=== PATIENT | male | born 1930 | race Caucasian/White ===

== ENCOUNTER 2017-04-25 05:50 | Day surgery (SDC) | payer MEDICARE, BC ==
[2017-04-25] MEDS ORDERED: Lactated Ringers 1,000 ML IV SCH (07:00)
[2017-04-25] MEDS ORDERED: Propofol 200 MG/20 ML SDV ONE (07:22)
[2017-04-25] MEDS ORDERED: fentaNYL 100 MCG/2 ML SDV ONE (07:22)
[2017-04-25 09:35] VITALS: BP 127/85
--- NOTE | 2017-04-28 07:47 | OR ---
DATE OF PROCEDURE: 04/25/2017 PREOPERATIVE DIAGNOSES: Weight loss, anorexia, and left lower quadrant abdominal pain. POSTOPERATIVE DIAGNOSES: Weight loss, anorexia, and left lower quadrant abdominal pain, etiology unknown, unremarkable colonoscopy. PROCEDURE: Colonoscopy to the cecum. SURGEON: Yohan Kuhn M.D. ANESTHESIA: IV anesthesia with monitored anesthesia care. INDICATION: This 87-year-old white male is referred for a colonoscopy because of 40-pound weight loss, anorexia, and left lower quadrant abdominal pain. He says it is really a mild discomfort. He says his last colonoscopic exam was done in 2002. I counseled him for the procedure, including risks and alternatives, and he gave his informed consent to proceed. DESCRIPTION OF PROCEDURE: The patient was placed in the left lateral decubitus position. IV anesthesia was administered by the Anesthesia Service. Time-out was held. A rectal exam was performed, which was unremarkable. The flexible video Olympus colonoscope was introduced through his anus, up to his rectum and out of his colon, all the way to the cecum. Once the cecum was reached, the scope was slowly withdrawn, examining the mucosa throughout. No mucosal abnormalities were noted. The scope was retroflexed in the rectum with the distal rectum appearing unremarkable. The scope was straightened and removed. He tolerated the procedure well. Yohan Kuhn MD /[id number]
== END 2017-04-25 09:33 | disposition home or self-care (01) ==
LOC: JP.SDS 05:50
PROVIDERS: ATTEND Surgery
DX: R10.32 Left lower quadrant pain (principal); R63.4 Abnormal weight loss; R63.0 Anorexia; J44.9 Chronic obstructive pulmonary disease, unspecified; E78.5 Hyperlipidemia, unspecified; I48.92 Unspecified atrial flutter; Z88.1 Allergy status to other antibiotic agents; Z88.8 Allergy status to other drugs, medicaments and biological substances
CPT/HCPCS: 45378; J2704; J3010; J7120

== ENCOUNTER 2017-05-23 06:52 | Day surgery (SDC) | payer MEDICARE, BC ==
[2017-05-23] MEDS ORDERED: fentaNYL 100 MCG/2 ML SDV ONE (07:18)
[2017-05-23] MEDS ORDERED: Propofol 200 MG/20 ML SDV ONE (07:18)
[2017-05-23] MEDS ORDERED: Lactated Ringers 1,000 ML IV SCH (07:30)
[2017-05-23 10:51] VITALS: BP 132/76
--- NOTE | 2017-05-23 11:17 | OR ---
DATE OF PROCEDURE: 05/23/2017 PREOPERATIVE DIAGNOSES: 1. Weight loss. 2. Early satiety. POSTOPERATIVE DIAGNOSES: 1. Gastroesophageal reflux disease. 2. Duodenitis. PROCEDURES: 1. Esophagogastroduodenoscopy with biopsy of gastroesophageal junction. 2. Biopsy of antrum for CLOtest and for pathology to look for Helicobacter pylori. SURGEON: Yohan Kuhn MD. ANESTHESIA: IV anesthesia with monitored anesthesia care. INDICATION: This 87-year-old white male is referred for upper endoscopy. He has a recent colonoscopy. Indication for the upper endoscopy is weight loss and early satiety. I counseled him for the procedure, including risks and alternatives, and he gave his informed consent to proceed. DESCRIPTION OF PROCEDURE: The patient was placed in the left lateral decubitus position. IV anesthesia was administered by the Anesthesia Service. Time-out was held. The flexible video Olympus upper endoscope was passed through his mouth, down his esophagus, and into his stomach. The scope was easily passed through the pylorus, into the duodenum, reaching its third portion. The scope was then slowly withdrawn examining the mucosa throughout. The distal duodenum appeared unremarkable. The scope was brought back into the duodenal bulb, which showed intense erythema consistent with duodenitis. The scope was brought back through the pylorus into the antrum. We obtained antral biopsies for CLOtest, sent for pathology to look for Helicobacter pylori. The scope was retroflexed, and the proximal stomach appeared unremarkable. The scope was straightened and brought up through the GE junction. The Z-line was not straight, consistent with gastroesophageal reflux disease. We obtained biopsies of the gastroesophageal junction totalling at least six. The scope was then brought proximally up through the remainder of the esophagus, which otherwise appeared unremarkable, and it was removed. He tolerated the procedure well. Yohan Kuhn MD /[id number]
== END 2017-05-23 11:05 | disposition home or self-care (01) ==
LOC: JP.SDS 06:52
PROVIDERS: ATTEND Surgery
DX: K29.50 Unspecified chronic gastritis without bleeding (principal); K20.9 Esophagitis, unspecified; I48.91 Unspecified atrial fibrillation; Z88.1 Allergy status to other antibiotic agents; Z88.8 Allergy status to other drugs, medicaments and biological substances
CPT/HCPCS: 43239; 87081; J2704; J3010; J7120; 88305; 88341; 88342

== ENCOUNTER 2018-10-12 11:10 | Emergency (ER) | payer MEDICARE, BC ==
[2018-10-12 11:50] VITALS: BP 148/80
--- NOTE | 2018-10-12 12:31 | EDM.PDOC ---
ED HPI GENERAL MEDICAL PROBLEM - General Chief Complaint: Respiratory Problem Stated Complaint: COUGHING FOR SEVERAL DAYS Time Seen by Provider: 10/12/18 12:15 Source of Information: Reports: Patient, Family History Limitations: Reports: No Limitations - History of Present Illness INITIAL COMMENTS - FREE TEXT/NARRATIVE: 88-year-old male with a cough for 10 days. No significant production, no significant fevers or chills. Intermittent shortness of breath. It started with a sore throat and a head cold, then moved into his lungs and it's not going away. Onset: Gradual Duration: Day(s): (10-14 days) Location: Reports: Chest Associated Symptoms: Reports: Other (Has been worked up for weight loss, also recently lost his vision). Denies: Fever/Chills, Headaches - Related Data Allergies Allergy/AdvReac Type Severity Reaction Status Date / Time dexamethasone Allergy Itching Verified 09/05/17 07:55 dorzolamide Allergy Rash Verified 09/05/17 07:55 erythromycin base Allergy Itching Verified 09/05/17 07:55 tobramycin Allergy Itching Verified 09/05/17 07:55 Home Meds: Home Meds Brimonidine [Alphagan 0.2% Ophth Soln] 1 drop EYERT BID 09/28/15 [History] Gabapentin [Neurontin] 600 mg PO DAILY 09/28/15 [History] Ipratropium [Atrovent 0.06% Nasal [place]] 2 spray PAULIE DAILY 09/28/15 [History] Levothyroxine Sodium [Synthroid] 150 mcg PO DAILY 09/28/15 [History] Mv-Mn/FA/Vit K/Lycop/Lut/Zeaxa [Ocuvite Eye + Multi Tablet] 1 each PO DAILY [History] Primidone [Mysoline] 150 mg PO BID 09/28/15 [History] Timolol Maleate [Timoptic 0.5% Opth Soln] 1 drop EYERT BID 09/28/15 [History] Triamcinolone Acetonide [Kenalog 0.1% Crm] 1 applic TOP BID PRN 09/28/15 [ History] Albuterol [IMW: Albuterol HFA] 1 - 2 puff IH Q4H PRN 04/23/17 [History] Aspirin [Children's Aspirin] 81 mg PO DAILY 04/23/17 [History] Cyanocobalamin (Vitamin B-12) [Vitamin B-12] 100 mcg PO DAILY 04/23/17 [History] Diltiazem HCl [Cardizem] 30 mg PO BID 04/23/17 [History] Omeprazole 40 mg PO BEDTIME 09/03/17 [History] Past Medical History HEENT History: Reports: Cataract, Glaucoma, Hard of Hearing, Impaired Vision, Other (See Below) Other HEENT History: stents in eyes, swollen retina, possible macular degeneration, injections in eyes Cardiovascular History: Reports: Afib, Arrhythmia, Other (See Below) Other Cardiovascular History: a flutter, cardioverted Respiratory History: Reports: Other (See Below) Other Respiratory History: "some breathing problems" 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 Gastrointestinal History: Reports: None Musculoskeletal History: Reports: Arthritis, Back Pain, Chronic Neurological History: Reports: Vertigo Psychiatric History: Reports: Depression Endocrine/Metabolic History: Reports: Hypothyroidism Dermatologic History: Reports: Other (See Below) Other Dermatologic History: winter has problems with dry skin - Infectious Disease History Infectious Disease History: Reports: Chicken Pox, Measles, Pertussis (Whooping Cough), Shingles - Past Surgical History Head Surgeries/Procedures: Reports: None HEENT Surgical History: Reports: Adenoidectomy, Cataract Surgery, Eye Surgery, Tonsillectomy Cardiovascular Surgical History: Reports: None Respiratory Surgical History: Reports: None GI Surgical History: Reports: Cholecystectomy, Colonoscopy Endocrine Surgical History: Reports: None Neurological Surgical History: Reports: Other (See Below) Other Neurological Surgeries/Procedures: back surgery Musculoskeletal Surgical History: Reports: Other (See Below) Other Musculoskeletal Surgeries/Procedures:: back surgery in 1999 Dermatological Surgical History: Reports: None Social & Family History - Family History Family Medical History: Noncontributory - Tobacco Use Smoking Status *Q: Former Smoker Used Tobacco, but Quit: No - Caffeine Use Caffeine Use: Reports: Coffee Other Caffeine Use: decaff coffee - Alcohol Use Days Per Week of Alcohol Use: 4 Number of Drinks Per Day: 1 Total Drinks Per Week: 4 - Recreational Drug Use Recreational Drug Use: No ED ROS GENERAL - Review of Systems Review Of Systems: See Below Constitutional: Reports: Malaise. Denies: Fever, Chills HEENT: Reports: Throat Pain Respiratory: Reports: Cough Cardiovascular: Denies: Chest Pain GI/Abdominal: Denies: Nausea, Vomiting Neurological: Denies: Headache Psychiatric: Reports: No Symptoms ED EXAM, GENERAL - Physical Exam Exam: See Below Exam Limited By: No Limitations General Appearance: Alert, No Apparent Distress Head: Atraumatic Respiratory/Chest: No Respiratory Distress, Lungs Clear, Rhonchi (A few scattered perihilar rhonchi) Cardiovascular: Regular Rate, Rhythm Extremities: Normal Inspection. No: Pedal Edema Neurological: Alert, Oriented Psychiatric: Normal Affect, Normal Mood Skin Exam: Warm, Dry Course - Vital Signs Last Recorded V/S: Last Vital Signs Temp 97.5 F 10/12/18 11:53 Pulse 83 10/12/18 11:53 Resp 16 10/12/18 11:53 BP 148/80 H 10/12/18 11:53 Pulse Ox 95 10/12/18 11:53 - Re-Assessments/Exams Free Text/Narrative Re-Assessment/Exam: 10/12/18 12:29 Patient will be covered with Zithromax, encouraged to recheck in 3-5 days if not improving. Return anytime if worsening. Departure - Departure Time of Disposition: 12:46 Disposition: Home, Self-Care 01 Clinical Impression: Bronchitis - Discharge Information Instructions: Acute Bronchitis, Adult, [id number] Referrals: Lam Raymundo MD [Primary Care Provider] - Forms: ED Department Discharge Care Plan Goals: Take medication as prescribed, continue your regular medications. Activity as tolerated, and consider rechecking in 4-5 days if not improving. Return anytime if worsening or concerns.
== END 2018-10-12 12:47 | disposition home or self-care (01) ==
LOC: JP.ED 11:10
DX: J40 Bronchitis, not specified as acute or chronic (principal); E03.9 Hypothyroidism, unspecified; Z88.1 Allergy status to other antibiotic agents; Z88.8 Allergy status to other drugs, medicaments and biological substances; Z79.899 Other long term (current) drug therapy; Z79.82 Long term (current) use of aspirin; Z79.51 Long term (current) use of inhaled steroids; Z98.890 Other specified postprocedural states; Z90.49 Acquired absence of other specified parts of digestive tract; Z87.891 Personal history of nicotine dependence
CPT/HCPCS: 99282

== ENCOUNTER 2019-02-11 14:16 | Emergency (ER) | payer MEDICARE, BC ==
--- NOTE | 2019-02-11 15:20 | EDM.PDOC ---
ED HPI GENERAL MEDICAL PROBLEM - General Chief Complaint: Cardiovascular Problem Stated Complaint: RAPID HEARTBEAT Time Seen by Provider: 02/11/19 14:59 Source of Information: Reports: Patient, Family, RN Notes Reviewed History Limitations: Reports: No Limitations - History of Present Illness INITIAL COMMENTS - FREE TEXT/NARRATIVE: 89-year-old gentleman presents to the emergency department with a complaint of palpitations, he has a known history of paroxysmal atrial fibrillation he is anticoagulated with aspirin alone has underwent cardioversion in the past. He states he woke this morning with the sensation of having palpitations he feels like his heart rate is irregular at this time. No shortness of breath no chest pain no nausea or vomiting - Related Data Allergies Allergy/AdvReac Type Severity Reaction Status Date / Time dexamethasone Allergy Itching Verified 02/11/19 14:36 dorzolamide Allergy Rash Verified 02/11/19 14:36 erythromycin base Allergy Itching Verified 02/11/19 14:36 tobramycin Allergy Itching Verified 02/11/19 14:36 Home Meds: Home Meds Brimonidine [Alphagan 0.2% Ophth Soln] 1 drop EYERT BID 09/28/15 [History] Gabapentin [Neurontin] 600 mg PO DAILY 09/28/15 [History] Ipratropium [Atrovent 0.06% Nasal [place]] 2 spray PAULIE DAILY 09/28/15 [History] Levothyroxine Sodium [Synthroid] 150 mcg PO DAILY 09/28/15 [History] Mv-Mn/FA/Vit K/Lycop/Lut/Zeaxa [Ocuvite Eye + Multi Tablet] 1 each PO DAILY [History] Primidone [Mysoline] 150 mg PO BID 09/28/15 [History] Timolol Maleate [Timoptic 0.5% Opth Soln] 1 drop EYERT BID 09/28/15 [History] Triamcinolone Acetonide [Kenalog 0.1% Crm] 1 applic TOP BID PRN 09/28/15 [ History] Albuterol [IMW: Albuterol HFA] 1 - 2 puff IH Q4H PRN 04/23/17 [History] Aspirin [Children's Aspirin] 81 mg PO DAILY 04/23/17 [History] Cyanocobalamin (Vitamin B-12) [Vitamin B-12] 100 mcg PO DAILY 04/23/17 [History] Diltiazem HCl [Cardizem] 30 mg PO BID 04/23/17 [History] Omeprazole 40 mg PO BEDTIME 09/03/17 [History] Past Medical History HEENT History: Reports: Cataract, Glaucoma, Hard of Hearing, Impaired Vision, Other (See Below) Other HEENT History: stents in eyes, swollen retina, possible macular degeneration, injections in eyes, legally blind. 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[employer] Musculoskeletal History: Reports: Arthritis, Back Pain, Chronic Neurological History: Reports: Vertigo Psychiatric History: Reports: Depression Endocrine/Metabolic History: Reports: Hypothyroidism Dermatologic History: Reports: Other (See Below) Other Dermatologic History: winter has problems with dry skin - Infectious Disease History Infectious Disease History: Reports: Chicken Pox, Measles, Pertussis (Whooping Cough), Shingles - Past Surgical History Head Surgeries/Procedures: Reports: None HEENT Surgical History: Reports: Adenoidectomy, Cataract Surgery, Eye Surgery, Tonsillectomy GI Surgical History: Reports: Cholecystectomy, Colonoscopy Neurological Surgical History: Reports: Other (See Below) Other Neurological Surgeries/Procedures: back surgery d/t ruptured disc. Musculoskeletal Surgical History: Reports: Other (See Below) Other Musculoskeletal Surgeries/Procedures:: back surgery in 1999 Social & Family History - Family History Family Medical History: Noncontributory - Tobacco Use Smoking Status *Q: Never Smoker - Caffeine Use Caffeine Use: Reports: Coffee Other Caffeine Use: decaff coffee - Alcohol Use Days Per Week of Alcohol Use: 4 Number of Drinks Per Day: 1 Total Drinks Per Week: 4 - Recreational Drug Use Recreational Drug Use: No ED ROS GENERAL - Review of Systems Review Of Systems: See Below Constitutional: Reports: No Symptoms HEENT: Reports: No Symptoms Respiratory: Reports: No Symptoms Cardiovascular: Reports: Palpitations GI/Abdominal: Reports: No Symptoms ED EXAM, GENERAL - Physical Exam Exam: See Below Exam Limited By: No Limitations General Appearance: Alert, WD/WN, No Apparent Distress Respiratory/Chest: No Respiratory Distress, Lungs Clear, Normal Breath Sounds, No Accessory Muscle Use, Chest Non-Tender Cardiovascular: Regular Rate, Rhythm, No Murmur Course - Vital Signs Last Recorded V/S: Last Vital Signs Temp 98.0 F 02/11/19 14:35 Pulse 54 L 02/11/19 16:25 Resp 16 02/11/19 16:25 BP 130/68 02/11/19 16:25 Pulse Ox 98 02/11/19 16:25 - Orders/Labs/Meds Orders: Active Orders 24 hr Category Date Time Status Cardiac Monitoring [RC] .As Directed Care 02/11/19 15:10 Active EKG Documentation Completion [RC] ASDIRECTED Care 02/11/19 15:16 Active EKG 12 Lead [EK] Stat Ther 02/11/19 15:15 Ordered Labs: Laboratory Tests 02/11/19 02/11/19 02/11/19 Range/Units 15:19 15:19 15:19 WBC 4.7 (4.5-11.0) K/uL RBC 4.24 L (4.30-5.90) M/uL Hgb 13.0 (12.0-15.0) g/dL Hct 40.2 (40.0-54.0) % MCV 95 (80-98) fL MCH 31 (27-31) pg MCHC 32 (32-36) % Plt Count 217 (150-400) K/uL Neut % (Auto) 58 (36-66) % Lymph % (Auto) 27 (24-44) % Irwin % (Auto) 9 H (2-6) % Eos % (Auto) 5 H (2-4) % Baso % (Auto) 1 (0-1) % Sodium 137 L (140-148) mmol/L Potassium 4.0 (3.6-5.2) mmol/L Chloride 103 (100-108) mmol/L Carbon Dioxide 30 (21-32) mmol/L Anion Gap 8.0 (5.0-14.0) mmol/L BUN 16 (7-18) mg/dL Creatinine 1.1 (0.8-1.3) mg/dL Est Cr Clr Drug Dosing 49.83 mL/min Estimated GFR (MDRD) > 60 (>60) Glucose 86 (74-106) mg/dL Calcium 8.4 L (8.5-10.1) mg/dL Magnesium (1.8-2.4) mg/dL Total Bilirubin 0.3 (0.2-1.0) mg/dL AST 17 (15-37) U/L ALT 20 (12-78) U/L Alkaline Phosphatase 61 (46-116) U/L Troponin I < 0.017 (0.000-0.056) ng/mL Total Protein 6.9 (6.4-8.2) g/dL Albumin 2.9 L (3.4-5.0) g/dL Globulin 4.0 H (2.3-3.5) g/dL Albumin/Globulin Ratio 0.7 L (1.2-2.2) TSH, Ultra Sensitive (0.358-3.740) uIU/mL 02/11/19 Range/Units 15:19 WBC (4.5-11.0) K/uL RBC (4.30-5.90) M/uL Hgb (12.0-15.0) g/dL Hct (40.0-54.0) % MCV (80-98) fL MCH (27-31) pg MCHC (32-36) % Plt Count (150-400) K/uL Neut % (Auto) (36-66) % Lymph % (Auto) (24-44) % Irwin % (Auto) (2-6) % Eos % (Auto) (2-4) % Baso % (Auto) (0-1) % Sodium (140-148) mmol/L Potassium (3.6-5.2) mmol/L Chloride (100-108) mmol/L Carbon Dioxide (21-32) mmol/L Anion Gap (5.0-14.0) mmol/L BUN (7-18) mg/dL Creatinine (0.8-1.3) mg/dL Est Cr Clr Drug Dosing mL/min Estimated GFR (MDRD) (>60) Glucose (74-106) mg/dL Calcium (8.5-10.1) mg/dL Magnesium 1.7 L (1.8-2.4) mg/dL Total Bilirubin (0.2-1.0) mg/dL AST (15-37) U/L ALT (12-78) U/L Alkaline Phosphatase (46-116) U/L Troponin I (0.000-0.056) ng/mL Total Protein (6.4-8.2) g/dL Albumin (3.4-5.0) g/dL Globulin (2.3-3.5) g/dL Albumin/Globulin Ratio (1.2-2.2) TSH, Ultra Sensitive 2.199 (0.358-3.740) uIU/mL Departure - Departure Time of Disposition: 17:24 Disposition: Home, Self-Care 01 Condition: Fair Clinical Impression: Palpitations Referrals: Lam Raymundo MD [Primary Care Provider] - Forms: ED Department Discharge Additional Instructions: Continue with your regular medications, please register at the hospital tomorrow for an appointment with respiratory therapy who will fit you with a 48- hour Holter monitor, after you turn this and the results will go to Dr. Jo Sepsis Event Note - Evaluation Sepsis Screening Result: No Definite Risk - Focused Exam Vital Signs: Vital Signs Temp Pulse Resp BP Pulse Ox 02/11/19 16:25 54 L 16 130/68 98 02/11/19 15:55 58 L 122/65 02/11/19 15:24 61 121/65 02/11/19 14:55 71 16 111/69 98 02/11/19 14:35 98.0 F 68 10 L 134/68 98 02/11/19 14:30 98.0 F 68 10 L 134/68 98 Date Exam was Performed: 02/11/19 Time Exam was Performed: 17:23 - My Orders Last 24 Hours: My Active Orders 02/11/19 15:10 Cardiac Monitoring [RC] .As Directed 02/11/19 15:15 EKG 12 Lead [EK] Stat 02/11/19 15:16 EKG Documentation Completion [RC] ASDIRECTED - Assessment/Plan Last 24 Hours: My Active Orders 02/11/19 15:10 Cardiac Monitoring [RC] .As Directed 02/11/19 15:15 EKG 12 Lead [EK] Stat 02/11/19 15:16 EKG Documentation Completion [RC] ASDIRECTED Plan: Assessment Acuity = acute Site and laterality = palpitations Etiology = unclear etiology Manifestations = none Location of injury = Home Lab values = CBC, CMP unremarkable troponin was negative EKG demonstrates sinus rhythm with a first-degree block and PVCs appreciated Plan I did review lab work EKG results with him elected to proceed with a 48-hour Holter monitor he will come in tomorrow and get fitted for that and then follow- up with his primary care for further evaluation suspicious for paroxysmal atrial fibrillation This note was dictated using [employer] voice recognition software please call with any questions on syntax or grammar.
[2019-02-11 16:38] VITALS: BP 130/68; PULSE 54
== END 2019-02-11 17:49 | disposition home or self-care (01) ==
LOC: JP.ED 14:16
DX: R00.2 Palpitations (principal); I48.91 Unspecified atrial fibrillation; F32.9 Major depressive disorder, single episode, unspecified; E03.9 Hypothyroidism, unspecified; Z79.82 Long term (current) use of aspirin; Z79.899 Other long term (current) drug therapy; Z88.1 Allergy status to other antibiotic agents; Z88.8 Allergy status to other drugs, medicaments and biological substances
CPT/HCPCS: 36415; 80053; 83735; 84443; 84484; 85025; 93005; 93010; 99283; 99285-25

== ENCOUNTER 2020-05-21 16:01 | Emergency (ER) | payer MEDICARE, BC ==
[2020-05-21 16:40] VITALS: BP 105/44; PULSE 75
[2020-05-21] MEDS ORDERED: Sodium Chloride 0.9% 10 ML Syringe FLUSH PRN (16:53)
[2020-05-21] MEDS ORDERED: Ondansetron 4 MG/2 ML SDV IVPUSH ONE (16:54)
--- NOTE | 2020-05-21 16:56 | EDM.PDOC ---
ED HPI GENERAL MEDICAL PROBLEM - General Chief Complaint: Gastrointestinal Problem Stated Complaint: NOT EATING, WEAKNESS Time Seen by Provider: 05/21/20 16:49 Source of Information: Reports: Patient, Family, RN Notes Reviewed History Limitations: Reports: No Limitations - History of Present Illness INITIAL COMMENTS - FREE TEXT/NARRATIVE: 89-year-old gentleman presents emergency department day complaint of nausea vomiting upset stomach states his been ill pretty much since this morning feels very weak and rundown he did receive his Covid vaccine 2 shots last was about a month ago he is not having fevers no shortness of breath or chest pain - Related Data Allergies Allergy/AdvReac Type Severity Reaction Status Date / Time dexamethasone Allergy Itching Verified 05/21/20 16:22 dorzolamide Allergy Rash Verified 05/21/20 16:22 erythromycin base Allergy Itching Verified 05/21/20 16:22 tobramycin Allergy Itching Verified 05/21/20 16:22 Home Meds: Home Meds Brimonidine [Alphagan 0.2% Ophth Soln] 1 drop EYERT BID 09/28/15 [History] Gabapentin [Neurontin] 600 mg PO DAILY 09/28/15 [History] Ipratropium [Atrovent 0.06% Nasal [place]] 2 spray PAULIE DAILY 09/28/15 [History] Levothyroxine Sodium [Synthroid] 150 mcg PO DAILY 09/28/15 [History] Mv-Mn/FA/Vit K/Lycop/Lut/Zeaxa [Ocuvite Eye + Multi Tablet] 1 each PO DAILY 09/28/15 [History] Primidone [Mysoline] 150 mg PO BID 09/28/15 [History] Triamcinolone Acetonide [Kenalog 0.1% Crm] 1 applic TOP BID PRN 09/28/15 [History] timoloL maleate [Timoptic 0.5% Opth Soln] 1 drop EYERT BID 09/28/15 [History] Albuterol [IMW: Albuterol HFA] 1 - 2 puff IH Q4H PRN 04/23/17 [History] Aspirin [Children's Aspirin] 81 mg PO DAILY 04/23/17 [History] Cyanocobalamin (Vitamin B-12) [Vitamin B-12] 100 mcg PO DAILY 04/23/17 [History] dilTIAZem HCL [Cardizem] 30 mg PO BID 04/23/17 [History] Omeprazole 40 mg PO BEDTIME 09/03/17 [History] ondansetron HCL [Ondansetron HCl] 1 tab PO Q8HR PRN 05/21/20 [History] Past Medical History HEENT History: Reports: Cataract, Glaucoma, Hard of Hearing, Impaired Vision, Other (See Below) Other HEENT History: stents in eyes, swollen retina, possible macular degeneration, injections in eyes, legally blind. 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 Musculoskeletal History: Reports: Arthritis, Back Pain, Chronic Neurological History: Reports: Vertigo Psychiatric History: Reports: Depression Endocrine/Metabolic History: Reports: Hypothyroidism Dermatologic History: Reports: Other (See Below) Other Dermatologic History: winter has problems with dry skin - Infectious Disease History Infectious Disease History: Reports: Chicken Pox, Measles, Pertussis (Whooping Cough), Shingles - Past Surgical History Head Surgeries/Procedures: Reports: None HEENT Surgical History: Reports: Adenoidectomy, Cataract Surgery, Eye Surgery, Tonsillectomy Cardiovascular Surgical History: Reports: None Respiratory Surgical History: Reports: None GI Surgical History: Reports: Cholecystectomy, Colonoscopy Endocrine Surgical History: Reports: None Neurological Surgical History: Reports: Other (See Below) Other Neurological Surgeries/Procedures: back surgery d/t ruptured disc. Musculoskeletal Surgical History: Reports: Other (See Below) Other Musculoskeletal Surgeries/Procedures:: back surgery in 1999 Dermatological Surgical History: Reports: None Social & Family History - Family History Family Medical History: No Pertinent Family History - Tobacco Use Tobacco Use Status *Q: Never Tobacco User - Caffeine Use Caffeine Use: Reports: Coffee Other Caffeine Use: decaff coffee ED ROS GENERAL - Review of Systems Review Of Systems: See Below Constitutional: Reports: Weakness, Fatigue. Denies: Fever, Chills HEENT: Reports: No Symptoms Respiratory: Reports: No Symptoms Cardiovascular: Reports: No Symptoms GI/Abdominal: Reports: Nausea, Vomiting. Denies: Abdominal Pain, Constipation, Diarrhea : Reports: No Symptoms ED EXAM, GI/ABD - Physical Exam Exam: See Below Exam Limited By: No Limitations General Appearance: Alert, Mild Distress Respiratory/Chest: No Respiratory Distress, Lungs Clear, Normal Breath Sounds, No Accessory Muscle Use, Chest Non-Tender Cardiovascular: Regular Rate, Rhythm, No Murmur GI/Abdominal Exam: Normal Bowel Sounds, Soft, Non-Tender Course - Vital Signs Last Recorded V/S: Last Vital Signs Temp 98.0 F 05/21/20 16:32 Pulse 75 05/21/20 16:32 Resp 14 05/21/20 16:32 BP 105/44 L 05/21/20 16:32 Pulse Ox 96 05/21/20 16:32 - Orders/Labs/Meds Orders: Active Orders 24 hr Category Date Time Status Peripheral IV Care [RC] . DIRECTED Care 05/21/20 16:53 Active Lactated Ringers [Ringers, Lactated] 1,000 ml Med 05/21/20 17:00 Active IV ASDIRECTED Sodium Chloride 0.9% [Saline Flush] Med 05/21/20 16:53 Active 10 ml FLUSH ASDIRECTED PRN Peripheral IV Insertion Adult [OM.PC] Urgent Oth 05/21/20 16:53 Ordered Medication Orders Lactated Ringer's (Ringers, Lactated) 1,000 mls @ 500 mls/hr IV ASDIRECTED IRINA Last Admin: 05/21/20 17:09 Dose: 500 mls/hr Documented by: NOREEN Sodium Chloride (Sodium Chloride 0.9% 10 Ml Syringe) 10 ml FLUSH ASDIRECTED PRN PRN Reason: Keep Vein Open Last Admin: 05/21/20 17:09 Dose: 10 ml Documented by: NOREEN Labs: Laboratory Tests 05/21/20 05/21/20 05/21/20 Range/Units 17:08 17:08 17:08 WBC 3.2 L (4.5-11.0) K/uL RBC 4.38 (4.30-5.90) M/uL Hgb 13.5 (12.0-15.0) g/dL Hct 40.5 (40.0-54.0) % MCV 93 (80-98) fL MCH 31 (27-31) pg MCHC 33 (32-36) % Plt Count 176 (150-400) K/uL Neut % (Auto) 55 (36-66) % Lymph % (Auto) 32 (24-44) % [place] % (Auto) 12 H (2-6) % Eos % (Auto) 1 L (2-4) % Baso % (Auto) 0 (0-1) % Sodium 140 (140-148) mmol/L Potassium 4.1 (3.6-5.2) mmol/L Chloride 101 (100-108) mmol/L Carbon Dioxide 27 (21-32) mmol/L Anion Gap 11.8 (5.0-14.0) mmol/L BUN 17 (7-18) mg/dL Creatinine 1.3 (0.8-1.3) mg/dL Est Cr Clr Drug Dosing 39.54 mL/min Estimated GFR (MDRD) 52 L (>60) Glucose 73 L (74-106) mg/dL Lactic Acid 1.2 (0.4-2.0) mmol/L Calcium 8.4 L (8.5-10.1) mg/dL Total Bilirubin 0.4 (0.2-1.0) mg/dL AST 18 (15-37) U/L ALT 20 (12-78) U/L Alkaline Phosphatase 78 (46-116) U/L Troponin I < 0.017 (0.000-0.056) ng/mL Total Protein 6.8 (6.4-8.2) g/dL Albumin 2.7 L (3.4-5.0) g/dL Globulin 4.1 H (2.3-3.5) g/dL Albumin/Globulin Ratio 0.7 L (1.2-2.2) Lipase 172 (73-393) U/L Influenza Type A RNA (NEGATIVE) RSV RNA (INAAT) (NEGATIVE) Influenza Type B RNA (NEGATIVE) SARS-CoV-2 RNA (TRAY) (NEGATIVE) 05/21/20 Range/Units 17:19 WBC (4.5-11.0) K/uL RBC (4.30-5.90) M/uL Hgb (12.0-15.0) g/dL Hct (40.0-54.0) % MCV (80-98) fL MCH (27-31) pg MCHC (32-36) % Plt Count (150-400) K/uL Neut % (Auto) (36-66) % Lymph % (Auto) (24-44) % [place] % (Auto) (2-6) % Eos % (Auto) (2-4) % Baso % (Auto) (0-1) % Sodium (140-148) mmol/L Potassium (3.6-5.2) mmol/L Chloride (100-108) mmol/L Carbon Dioxide (21-32) mmol/L Anion Gap (5.0-14.0) mmol/L BUN (7-18) mg/dL Creatinine (0.8-1.3) mg/dL Est Cr Clr Drug Dosing mL/min Estimated GFR (MDRD) (>60) Glucose (74-106) mg/dL Lactic Acid (0.4-2.0) mmol/L Calcium (8.5-10.1) mg/dL Total Bilirubin (0.2-1.0) mg/dL AST (15-37) U/L ALT (12-78) U/L Alkaline Phosphatase (46-116) U/L Troponin I (0.000-0.056) ng/mL Total Protein (6.4-8.2) g/dL Albumin (3.4-5.0) g/dL Globulin (2.3-3.5) g/dL Albumin/Globulin Ratio (1.2-2.2) Lipase (73-393) U/L Influenza Type A RNA Negative (NEGATIVE) RSV RNA (INAAT) Negative (NEGATIVE) Influenza Type B RNA Negative (NEGATIVE) SARS-CoV-2 RNA (TRAY) Positive H (NEGATIVE) Meds: Medications Generic Name Dose Route Start Last Admin Trade Name Freq PRN Reason Stop Dose Admin Lactated Ringer's 1,000 mls @ 500 mls/hr 05/21/20 17:00 05/21/20 17:09 Ringers, Lactated IV 500 mls/hr ASDIRECTED IRINA Administration Sodium Chloride 10 ml 05/21/20 16:53 05/21/20 17:09 Sodium Chloride 0.9% 10 Ml Syringe FLUSH 10 ml ASDIRECTED PRN Administration Keep Vein Open Discontinued Medications Generic Name Dose Route Start Last Admin Trade Name Freq PRN Reason Stop Dose Admin Ondansetron HCl 4 mg 05/21/20 16:54 05/21/20 17:09 Ondansetron 4 Mg/2 Ml Sdv IVPUSH 05/21/20 16:55 4 mg ONETIME ONE Administration Departure - Departure Time of Disposition: 18:14 Disposition: Home, Self-Care 01 Condition: Fair Clinical Impression: COVID-19 - Discharge Information Instructions: COVID-19 Referrals: Lam Raymundo MD [Primary Care Provider] - Forms: ED Department Discharge Additional Instructions: The outpatient surgery will call you tomorrow for an appointment time for monoclonal antibody therapy call or return to the emergency department worsening symptoms Sepsis Event Note (ED) - Evaluation Sepsis Screening Result: No Definite Risk - Focused Exam Vital Signs: Vital Signs Temp Pulse Resp BP Pulse Ox 05/21/20 16:32 98.0 F 75 14 105/44 L 96 - My Orders Last 24 Hours: My Active Orders 05/21/20 16:53 Peripheral IV Care [RC] . DIRECTED Sodium Chloride 0.9% [Saline Flush] 10 ml FLUSH ASDIRECTED PRN Peripheral IV Insertion Adult [OM.PC] Urgent 05/21/20 17:00 Lactated Ringers [Ringers, Lactated] 1,000 ml IV ASDIRECTED - Assessment/Plan Last 24 Hours: My Active Orders 05/21/20 16:53 Peripheral IV Care [RC] . DIRECTED Sodium Chloride 0.9% [Saline Flush] 10 ml FLUSH ASDIRECTED PRN Peripheral IV Insertion Adult [OM.PC] Urgent 05/21/20 17:00 Lactated Ringers [Ringers, Lactated] 1,000 ml IV ASDIRECTED Plan: Assessment Acuity = acute Site and laterality = viral syndrome Etiology = COVID-19 Manifestations = nausea vomiting Location of injury = Home Lab values = WBC low at 3.2 consistent leukopenia lactic acid normal at 1.2 troponin was negative Covid is positive with influenza AMB negative and RSV negative Plan Good relief a 500 cc of fluids with Zofran, he will be set up for monoclonal antibody therapy tomorrow he is willing to try and go home with Zofran ODT 4 mg p.o. 3 times daily as needed total #5 This note was dictated using [email or web address] voice recognition software please call with any questions on syntax or grammar.
[2020-05-21] MEDS ORDERED: Lactated Ringers 1,000 ML IV SCH (17:00)
[2020-05-21 18:10] LABS: CORONAVIRUS COVID-19 NAA POSITIVE (NEGATIVE)
== END 2020-05-21 19:02 | disposition home or self-care (01) ==
LOC: JP.ED 16:01
DX: U07.1 COVID-19 (principal); E03.9 Hypothyroidism, unspecified; Z79.82 Long term (current) use of aspirin; Z79.899 Other long term (current) drug therapy; Z88.8 Allergy status to other drugs, medicaments and biological substances; Z88.1 Allergy status to other antibiotic agents
CPT/HCPCS: 0241U; 36415; 80053; 83605; 83690; 84484; 85025; 96374; 99284; J2405; J7120

== ENCOUNTER 2020-07-20 13:54 | Emergency (ER) | payer MEDICARE, BC ==
[2020-07-20 15:33] VITALS: BP 124/71; PULSE 70
--- NOTE | 2020-07-20 15:45 | EDM.PDOC ---
ED HPI GENERAL MEDICAL PROBLEM - General Chief Complaint: Cardiovascular Problem Stated Complaint: HEART RACES Time Seen by Provider: 07/20/20 14:30 Source of Information: Reports: Patient, Family History Limitations: Reports: No Limitations - History of Present Illness INITIAL COMMENTS - FREE TEXT/NARRATIVE: 89-year-old male into the clinic to discuss palpitations especially with activity, a brief evaluation by the front office agent deemed that he should go to the emergency room instead. He was not seen by provider. On arrival he just is worried that he has a sensation of his heart pounding with activity, but really does not complain of shortness of breath or other complaint. This is a new symptom for him for the last 48 hours, he has been working with his primary provider regarding weight loss but "nothing is been found". In the emergency room is asymptomatic and feels fine. - Related Data Allergies Allergy/AdvReac Type Severity Reaction Status Date / Time dexamethasone Allergy Itching Verified 07/20/20 14:18 dorzolamide Allergy Rash Verified 07/20/20 14:18 erythromycin base Allergy Itching Verified 07/20/20 14:18 tobramycin Allergy Itching Verified 07/20/20 14:18 Home Meds: Home Meds Brimonidine [Alphagan 0.2% Ophth Soln] 1 drop EYERT BID 09/28/15 [History] Gabapentin [Neurontin] 600 mg PO DAILY 09/28/15 [History] Ipratropium [Atrovent 0.06% Nasal [place]] 2 spray PAULIE DAILY 09/28/15 [History] Levothyroxine Sodium [Synthroid] 150 mcg PO DAILY 09/28/15 [History] Mv-Mn/FA/Vit K/Lycop/Lut/Zeaxa [Ocuvite Eye + Multi Tablet] 1 each PO DAILY 09/28/15 [History] Primidone [Mysoline] 100 mg PO TID 09/28/15 [History] Triamcinolone Acetonide [Kenalog 0.1% Crm] 1 applic TOP BID PRN 09/28/15 [History] timoloL maleate [Timoptic 0.5% Opth Soln] 1 drop EYERT BID 09/28/15 [History] Albuterol [IMW: Albuterol HFA] 1 - 2 puff IH Q4H PRN 04/23/17 [History] Aspirin [Children's Aspirin] 81 mg PO DAILY 04/23/17 [History] Cyanocobalamin (Vitamin B-12) [Vitamin B-12] 100 mcg PO DAILY 04/23/17 [History] dilTIAZem HCL [Cardizem] 30 mg PO BID 04/23/17 [History] Omeprazole 40 mg PO BEDTIME 09/03/17 [History] ondansetron HCL [Ondansetron HCl] 1 tab PO Q8HR PRN 05/21/20 [History] Metoprolol Tartrate 50 mg PO BID 05/22/20 [History] Past Medical History HEENT History: Reports: Cataract, Glaucoma, Hard of Hearing, Impaired Vision, Other (See Below) Other HEENT History: stents in eyes, swollen retina, possible macular dege neration, injections in eyes, legally blind. 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 Gastrointestinal History: Reports: None Musculoskeletal History: Reports: Arthritis, Back Pain, Chronic Neurological History: Reports: Vertigo Psychiatric History: Reports: Depression Endocrine/Metabolic History: Reports: Hypothyroidism Dermatologic History: Reports: Other (See Below) Other Dermatologic History: winter has problems with dry skin - Infectious Disease History Infectious Disease History: Reports: Chicken Pox, Measles, Novel Coronavirus, Pertussis (Whooping Cough), Shingles - Past Surgical History Head Surgeries/Procedures: Reports: None HEENT Surgical History: Reports: Adenoidectomy, Cataract Surgery, Eye Surgery, Tonsillectomy Cardiovascular Surgical History: Reports: None Respiratory Surgical History: Reports: None GI Surgical History: Reports: Cholecystectomy, Colonoscopy Endocrine Surgical History: Reports: None Neurological Surgical History: Reports: Other (See Below) Other Neurological Surgeries/Procedures: back surgery d/t ruptured disc. Musculoskeletal Surgical History: Reports: Other (See Below) Other Musculoskeletal Surgeries/Procedures:: back surgery in 1999 Dermatological Surgical History: Reports: None Social & Family History - Family History Family Medical History: No Pertinent Family History - Caffeine Use Caffeine Use: Reports: Coffee Other Caffeine Use: decaff coffee ED ROS GENERAL - Review of Systems Review Of Systems: See Below Constitutional: Reports: Malaise, Weight Loss (Has been working with his primary provider regarding weight loss over the past several months). Denies: Chills HEENT: Reports: Other (Some hearing loss). Denies: Vision Change Respiratory: Denies: Shortness of Breath Cardiovascular: Reports: Palpitations (Does not feel an irregular heartbeat, just a prominent heartbeat with activity) GI/Abdominal: Denies: Abdominal Pain, Nausea, Vomiting Skin: Reports: No Symptoms Neurological: Reports: Weakness ED EXAM, GENERAL - Physical Exam Exam: See Below Exam Limited By: No Limitations General Appearance: Alert, No Apparent Distress Eye Exam: Bilateral Eye: Normal Inspection Head: Atraumatic Neck: Supple, Non-Tender Respiratory/Chest: No Respiratory Distress, Lungs Clear Cardiovascular: Regular Rate, Rhythm GI/Abdominal: Soft, Non-Tender Extremities: No: Pedal Edema Neurological: Alert, Oriented, No Motor/Sensory Deficits Psychiatric: Normal Affect, Normal Mood Skin Exam: Warm, Dry Course - Vital Signs Last Recorded V/S: Last Vital Signs Temp 98 F 07/20/20 14:24 Pulse 70 07/20/20 15:32 Resp 29 H 07/20/20 15:32 BP 124/71 07/20/20 15:32 Pulse Ox 96 07/20/20 15:32 - Orders/Labs/Meds Orders: Active Orders 24 hr Category Date Time Status EKG 12 Lead [EK] Routine Ther 07/20/20 15:44 Ordered - Re-Assessments/Exams Free Text/Narrative Re-Assessment/Exam: 07/21/20 07:49 Patient was kept on cardiac monitoring for over half an hour and had a stable sinus rhythm. 07/21/20 07:49 EKG was normal, patient was ambulated in the hallways and had no significant symptoms. Departure - Departure Time of Disposition: 15:52 Disposition: Home, Self-Care 01 Clinical Impression: Palpitations Instructions: Palpitations, [id number] Referrals: Lam Raymundo MD [Primary Care Provider] - Forms: ED Department Discharge Care Plan Goals: Continue your regular medications, increase activity as tolerated and recheck in the next 24 to 48 hours if not improving satisfactorily. Sepsis Event Note (ED) - Evaluation Sepsis Screening Result: No Definite Risk - My Orders Last 24 Hours: My Active Orders 07/20/20 15:44 EKG 12 Lead [EK] Routine - Assessment/Plan Last 24 Hours: My Active Orders 07/20/20 15:44 EKG 12 Lead [EK] Routine
== END 2020-07-20 15:52 | disposition home or self-care (01) ==
LOC: JP.ED 13:54
DX: R00.2 Palpitations (principal); E03.9 Hypothyroidism, unspecified; Z86.16 Personal history of COVID-19; Z79.82 Long term (current) use of aspirin; Z88.8 Allergy status to other drugs, medicaments and biological substances; Z88.1 Allergy status to other antibiotic agents
CPT/HCPCS: 93005; 99284-25

== ENCOUNTER 2020-12-05 15:43 | Emergency (ER) | payer MEDICARE, BC ==
--- NOTE | 2020-12-05 16:35 | EDM.PDOC ---
ED HPI GENERAL MEDICAL PROBLEM - General Chief Complaint: Cardiovascular Problem Stated Complaint: erratic heartbeat Time Seen by Provider: 12/05/20 16:15 Source of Information: Reports: Patient, Family History Limitations: Reports: No Limitations - History of Present Illness INITIAL COMMENTS - FREE TEXT/NARRATIVE: 89-year-old male who has a history of atrial flutter or fibrillation in the past, for the last 2 days has felt somewhat lightheaded and weak with activity, he feels his heart beating irregular at times and today felt like he "almost passed out" so thought he should get checked out. He has no chest pain, no shortness of breath. On arrival he was placed on cardiac monitoring and it showed atrial fibrillation with a slow ventricular response with a rate in the high 40s to mid 50s. His blood pressure was normal. Onset: Unknown/Unsure Duration: Day(s): (Symptoms for at least the last 2 days) Improves with: Reports: None Worsens with: Reports: Other (Activity is difficult, lightheaded when he stands) Associated Symptoms: Reports: Malaise, Weakness. Denies: Confusion, Chest Pain, Loss of Appetite, Shortness of Breath - Related Data Allergies Allergy/AdvReac Type Severity Reaction Status Date / Time dexamethasone Allergy Itching Verified 12/05/20 16:03 dorzolamide Allergy Rash Verified 12/05/20 16:03 erythromycin base Allergy Itching Verified 12/05/20 16:03 tobramycin Allergy Itching Verified 12/05/20 16:03 Home Meds: Home Meds Brimonidine [Alphagan 0.2% Ophth Soln] 1 drop EYERT BID 09/28/15 [History] Gabapentin [Neurontin] 600 mg PO DAILY 09/28/15 [History] Ipratropium [Atrovent 0.06% Nasal [place]] 2 spray PAULIE DAILY 09/28/15 [History] Levothyroxine Sodium [Synthroid] 150 mcg PO DAILY 09/28/15 [History] Mv-Mn/FA/Vit K/Lycop/Lut/Zeaxa [Ocuvite Eye + Multi Tablet] 1 each PO DAILY 09/28/15 [History] Primidone [Mysoline] 100 mg PO TID 09/28/15 [History] Triamcinolone Acetonide [Kenalog 0.1% Crm] 1 applic TOP BID PRN 09/28/15 [History] timoloL maleate [Timoptic 0.5% Opth Soln] 1 drop EYERT BID 09/28/15 [History] Albuterol [IMW: Albuterol HFA] 1 - 2 puff IH Q4H PRN 04/23/17 [History] Aspirin [Children's Aspirin] 81 mg PO BEDTIME 04/23/17 [History] Cyanocobalamin (Vitamin B-12) [Vitamin B-12] 100 mcg PO DAILY 04/23/17 [History] dilTIAZem HCL [Cardizem] 30 mg PO BID 04/23/17 [History] Omeprazole 40 mg PO BEDTIME 09/03/17 [History] Metoprolol Tartrate 50 mg PO BID 05/22/20 [History] Past Medical History HEENT History: Reports: Cataract, Glaucoma, Hard of Hearing, Impaired Vision, Macular Degeneration, Other (See Below) Other HEENT History: stents in eyes, swollen retina, possible macular degeneration, injections in eyes, legally blind. 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 Gastrointestinal History: Reports: None Musculoskeletal History: Reports: Arthritis, Back Pain, Chronic Neurological History: Reports: Vertigo Psychiatric History: Reports: Depression Endocrine/Metabolic History: Reports: Hypothyroidism Dermatologic History: Reports: Other (See Below) Other Dermatologic History: winter has problems with dry skin - Infectious Disease History Infectious Disease History: Reports: Chicken Pox, Measles, Novel Coronavirus, Pertussis (Whooping Cough), Shingles - Past Surgical History Head Surgeries/Procedures: Reports: None HEENT Surgical History: Reports: Adenoidectomy, Cataract Surgery, Eye Surgery, Tonsillectomy Cardiovascular Surgical History: Reports: None Respiratory Surgical History: Reports: None GI Surgical History: Reports: Cholecystectomy, Colonoscopy Endocrine Surgical History: Reports: None Neurological Surgical History: Reports: Other (See Below) Other Neurological Surgeries/Procedures: back surgery d/t ruptured disc. Musculoskeletal Surgical History: Reports: Other (See Below) Other Musculoskeletal Surgeries/Procedures:: back surgery in 1999 Dermatological Surgical History: Reports: None Social & Family History - Family History Family Medical History: No Pertinent Family History - Tobacco Use Tobacco Use Status *Q: Former Tobacco User Used Tobacco, but Quit: Yes Month/Year Tobacco Last Used: age 36 - Caffeine Use Caffeine Use: Reports: None Other Caffeine Use: decaff coffee ED ROS GENERAL - Review of Systems Review Of Systems: See Below Constitutional: Reports: Malaise. 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) Respiratory: Denies: Shortness of Breath Cardiovascular: Reports: Lightheadedness, Palpitations GI/Abdominal: Denies: Decreased Appetite : Reports: No Symptoms Musculoskeletal: Reports: No Symptoms Skin: Reports: Bruising (Bruises easily) Neurological: Reports: Weakness, Other (Near syncope when standing) Psychiatric: Denies: Depression, Suicidal Ideation ED EXAM, GENERAL - Physical Exam Exam: See Below Exam Limited By: No Limitations General Appearance: Alert, No Apparent Distress Eye Exam: Bilateral Eye: Vision Changes (Legally blind) Throat/Mouth: Normal Inspection Head: Atraumatic, Normocephalic Neck: Supple, Non-Tender Respiratory/Chest: No Respiratory Distress, Lungs Clear Cardiovascular: Bradycardia, Irregularly Irregular GI/Abdominal: Soft, Non-Tender Extremities: Normal Inspection, Other (Extremities are thin but strength is symmetric). No: Pedal Edema Neurological: Alert, Oriented, No Motor/Sensory Deficits, Other (Only deficit is blindness) Psychiatric: Normal Affect, Normal Mood Skin Exam: Warm, Dry #1 Interpretation Rhythm: NSR EKG Interpretation Comments: First-degree block, otherwise normal sinus rhythm with a rate of 60. EKG was done during an episode of normal sinus rhythm, the monitor shows intermittent sinus rhythm and atrial fibrillation with bradycardia. Course - Vital Signs Last Recorded V/S: Last Vital Signs Temp 98.1 F 12/05/20 15:53 Pulse 58 L 12/05/20 17:54 Resp 15 12/05/20 17:54 BP 105/55 L 12/05/20 17:54 Pulse Ox 99 12/05/20 17:54 Orthostatic Blood Pressure [ 126/51 Standing] Orthostatic Blood Pressure [ 119/60 Sitting] Orthostatic Blood Pressure [ 100/59 Supine] - Orders/Labs/Meds Labs: Laboratory Tests 12/05/20 12/05/20 Range/Units 16:49 16:49 WBC 5.2 (4.5-11.0) K/uL RBC 4.34 (4.30-5.90) M/uL Hgb 13.6 (12.0-15.0) g/dL Hct 40.6 (40.0-54.0) % MCV 94 (80-98) fL MCH 31 (27-31) pg MCHC 34 (32-36) % Plt Count 208 (150-400) K/uL Neut % (Auto) 67.0 H (36-66) % Lymph % (Auto) 24.5 (24-44) % [place] % (Auto) 6.2 H (2-6) % Eos % (Auto) 1.9 L (2-4) % Baso % (Auto) 0.4 (0-1) % Sodium 137 L (140-148) mmol/L Potassium 4.2 (3.6-5.2) mmol/L Chloride 100 (100-108) mmol/L Carbon Dioxide 30 (21-32) mmol/L Anion Gap 11.2 (5.0-14.0) mmol/L BUN 17 (7-18) mg/dL Creatinine 1.3 (0.8-1.3) mg/dL Est Cr Clr Drug Dosing 40.29 mL/min Estimated GFR (MDRD) 52 L (>60) Glucose 88 (74-106) mg/dL Calcium 8.8 (8.5-10.1) mg/dL Troponin I < 0.017 (0.000-0.056) ng/mL - Re-Assessments/Exams Free Text/Narrative Re-Assessment/Exam: 12/05/20 16:43 Orthostatic vitals were done which were stable, however the patient tended to go into bradycardia when standing if in atrial fibrillation. When in sinus rhythm he is very stable. CBC, BMP and troponin were obtained. 12/05/20 18:03 Labs returned reassuring, troponin is 0, patient was still having some stretches of bradycardia but was mostly in a sinus rhythm with a rate of 60. There are no beds available anywhere within 100 miles for him to be monitored, he is going to hold home and hold his metoprolol and Cardizem for the next 48 hours and return in 24 to 48 hours if not improving. He wants to avoid a pacemaker if possible. Departure - Departure Time of Disposition: 18:31 Disposition: Home, Self-Care 01 Clinical Impression: Symptomatic bradycardia Atrial fibrillation Qualifiers: Atrial fibrillation type: paroxysmal Qualified Code(s): I48.0 - Paroxysmal atrial fibrillation Instructions: Bradycardia, Adult Referrals: Lam Raymundo MD [Primary Care Provider] - Forms: ED Department Discharge Care Plan Goals: Do not take metoprolol or Cardizem today or tomorrow, and resume your regular medications on . Return sooner if your symptoms are worsening or you feel your heart is persistently too slow causing weakness or chest pain. Sepsis Event Note (ED) - Evaluation Sepsis Screening Result: No Definite Risk
[2020-12-05 17:55] VITALS: BP 105/55; PULSE 58
== END 2020-12-05 18:32 | disposition home or self-care (01) ==
LOC: JP.ED 15:43
DX: I48.0 Paroxysmal atrial fibrillation (principal); R00.1 Bradycardia, unspecified; I44.0 Atrioventricular block, first degree; I48.92 Unspecified atrial flutter; M19.90 Unspecified osteoarthritis, unspecified site; E03.9 Hypothyroidism, unspecified; Z87.891 Personal history of nicotine dependence; Z88.8 Allergy status to other drugs, medicaments and biological substances; Z88.1 Allergy status to other antibiotic agents; Z79.82 Long term (current) use of aspirin; Z79.899 Other long term (current) drug therapy
CPT/HCPCS: 36415; 80048; 84484; 85025; 93005; 99285-25